=== PATIENT | female | born 1990 | race Caucasian/White ===

== ENCOUNTER 2018-03-16 01:22 | Emergency (ER) | payer MEDICAID ==
[~2018-03-16] VITALS: Ht 154.9 cm; Wt 84.1 kg
[~2018-03-16 01:22] MED LIST: FERR1TAB25; PREN1TAB19
[2018-03-16] MEDS ORDERED: IBUPROFEN 600MG TABLET PO ONE (03:45)
[2018-03-16 04:12] VITALS: BP 113/65
== END 2018-03-16 04:16 | disposition home or self-care (01) ==
LOC: ER 01:22
DX: S00.83XA Contusion of other part of head, initial encounter (principal); Y08.89XA Assault by other specified means, initial encounter; Y93.89 Activity, other specified; Y92.89 Other specified places as the place of occurrence of the external cause; Y99.8 Other external cause status
CPT/HCPCS: 99282